=== PATIENT | female | born 1955 | race Caucasian/White ===

== ENCOUNTER 2016-07-02 20:47 | Emergency (ER) | payer OTHER ==
[2016-07-02] MEDS ORDERED: Lidocaine 1% with EPINEPHrine 1:100,000 50 ML MDV INFILT ONE (21:40)
[2016-07-02] MEDS ORDERED: Bacitracin Oint 1 GM U/D Packet TOP ONE (21:41)
--- NOTE | 2016-07-02 21:44 | EDM.PDOC ---
[id number] 4d FELL AND CUT HerSELF Time Seen by Provider: 07/02/16 21:24 Source of Information: Reports: Patient History Limitations: Reports: No Limitations - History of Present Illness INITIAL COMMENTS - FREE TEXT/NARRATIVE: 60 yo female present o ER with family c/o lacerations to forehead and right little finger. She was walking up stairs carrying at glass and a plate and slipped hitting head on step and dropping glass which broke cutting little finger. no LOC. denies nausea. - Related Data Allergies Allergy/AdvReac Type Severity Reaction Status Date / Time No Known Allergies Allergy Verified 07/02/16 21:28 Past Medical History - Past Health History Medical/Surgical History: Denies Medical/Surgical History - Infectious Disease History Infectious Disease History: Reports: Chicken Pox Social & Family History - Tobacco Use Smoking Status *Q: Never Smoker - Caffeine Use Caffeine Use: Reports: Coffee - Recreational Drug Use Recreational Drug Use: No ED ROS GENERAL - Review of Systems Review Of Systems: See Below Constitutional: Denies: Fever, Chills Respiratory: Denies: Shortness of Breath, Wheezing Cardiovascular: Denies: Chest Pain GI/Abdominal: Denies: Abdominal Pain Skin: Reports: Wound ED EXAM, SKIN/RASH Exam: See Below Exam Limited By: No Limitations General Appearance: Alert, WD/WN, No Apparent Distress Head: Normocephalic, Other (2.5 cm laceration to left forehead) Neck: Normal Inspection, Supple, Non-Tender, Full Range of Motion Respiratory/Chest: No Respiratory Distress Skin: Warm, Dry, Intact, Other (abrasion right little finger at PIP) ED SKIN PROCEDURES - Laceration/Wound Repair Left Forehead Lac/wound length in cm: 3 Appearance: Superficial Distal NVT: neuro & vascular intact, no tendon injury Anesthetic Type: local Local anesthesia - Lidocaine (Xylocaine): 1% with epi Local anesthetic volume: 5cc Skin prep: chlorhexidine (hibiciens), saline, sterile drape Saline irrigation (cc's): 50 Exploration/Debridement/Repair: wound explored, in a bloodless field, explored to base Closed with: sutures Suture size: other (5-0) Suture type: nylon, interrupted Course - Vital Signs Last Recorded V/S: Last Vital Signs Temp 35.9 C 07/02/16 21:24 Pulse 70 07/02/16 22:30 Resp 20 07/02/16 22:30 BP 157/100 H 07/02/16 22:30 Pulse Ox 94 L 07/02/16 22:30 - Orders/Labs/Meds Meds: Medications Discontinued Medications Generic Name Dose Route Start Last Admin Trade Name Rey PRN Reason Stop Dose Admin Bacitracin 1 dose 07/02/16 21:41 07/02/16 21:49 Bacitracin Oint 1 Gm TOP 07/02/16 21:42 1 dose ONETIME ONE Administration Lidocaine/Epinephrine 5 ml 07/02/16 21:40 07/02/16 21:49 Xylocaine 1% With Epinephrine 1:100,000 INFILT 07/02/16 21:41 5 ml ONETIME ONE Administration - Re-Assessments/Exams Free Text/Narrative Re-Assessment/Exam: 07/02/16 22:22 laceration repaired without difficulty. continue to not have headache or neck pain. denies nausea. Departure - Departure Time of Disposition: 22:23 Disposition: Home, Self-Care 01 Condition: good Clinical Impression: Laceration of face Qualifiers: Encounter type: initial encounter Qualified Code(s): S01.81XA - Laceration without foreign body of other part of head, initial encounter - Discharge Information Instructions: Head Injury, Adult, [id number], Stitches, Chitra, or Adhesive Wound Closure, [id number] Referrals: PCP,None [Primary Care Provider] - Forms: ED Department Discharge Additional Instructions: sutures out in 5-7 days keep dry tonight may wash with warm soapy water thereafter ice for pain Tylenol 1000 mg for pain not to exceed 4000 mg in 24 hours You did have a head injury tonight that caused the laceration. IF you develop vomiting over the next 24-48 hours or sever pain please return to emergency room
[2016-07-02 22:32] VITALS: BP 157/100
== END 2016-07-02 22:35 | disposition home or self-care (01) ==
LOC: JP.ED 20:47
DX: S01.81XA Laceration without foreign body of other part of head, initial encounter (principal); W01.118A Fall on same level from slipping, tripping and stumbling with subsequent striking against other sharp object, initial encounter
CPT/HCPCS: 12013; 99283-25